=== PATIENT | male | born 1985 | race African-American/Black ===

== ENCOUNTER 2022-12-17 07:47 | Emergency (ER) | payer MEDICAID, OTHER ==
[~2022-12-17] VITALS: Ht 182.9 cm; Wt 83.9 kg
[2022-12-17 08:27] VITALS: BP 136/82; PULSE 99; RESP 18; TEMP 98.2; O2SAT 99
[2022-12-17] MEDS ORDERED: KETOROLAC TROMETH 30 MG/ML 1ML VIAL IM ONE (09:00)
[2022-12-17] MEDS ORDERED: CEFTRIAXONE SODIUM 2 GM in D5W 5% 100 ML IV ONE (09:00)
[2022-12-17] MEDS ORDERED: BACDST PO (10:58)
[2022-12-17] MEDS ORDERED: IBUP1TAB5 PO (10:58)
== END 2022-12-17 10:59 | disposition home or self-care (01) ==
LOC: ER 07:47
DX: S30.860A Insect bite (nonvenomous) of lower back and pelvis, initial encounter (principal); W57.XXXA Bitten or stung by nonvenomous insect and other nonvenomous arthropods, initial encounter; Y93.89 Activity, other specified; Y92.89 Other specified places as the place of occurrence of the external cause; Y99.8 Other external cause status
CPT/HCPCS: 96365; 96372; 99284; J0696; J1885; J7060